=== PATIENT | male | born 1955 | race African-American/Black ===

== ENCOUNTER 2020-08-26 06:44 | Emergency (ER) | payer MEDICAID ==
[~2020-08-26] VITALS: Ht 182.9 cm; Wt 64.0 kg
[2020-08-26 08:55] VITALS: BP 171/98
== END 2020-08-26 08:55 | disposition home or self-care (01) ==
LOC: ER 06:44
DX: M54.2 Cervicalgia (principal); I10 Essential (primary) hypertension
CPT/HCPCS: 74176; 93005; 99285

== ENCOUNTER 2020-11-06 18:17 | Emergency (ER) | payer MEDICAID, OTHER ==
[~2020-11-06] VITALS: Ht 177.8 cm; Wt 75.0 kg
[2020-11-06 22:52] LABS: CHLORIDE 99 mEq/L (98-107)
[2020-11-06 22:57] LABS: ETHANOL BLOOD < 10 mg/dL
[2020-11-07 00:07] LABS: BASOPHILS % 0.3 % (0.0-2.0); HEMATOCRIT. 36.2 % (42.0-52.0); HEMOGLOBIN. 12.6 g/dL (14.0-18.0); LYMPHOCYTES % 13.9 % (20.0-50.0); MEAN CORPUSCULAR HEMOGLOBIN 31.1 pg (28.0-32.0); MEAN CORPUSCULAR VOLUME 89.1 fL (80.0-94.0); MEAN PLATELET VOLUME 6.4 fl (7.4-10.4); NEUTROPHILS % 69.8 % (40.0-76.0); PLATELET 247 x1000/uL (130-400); RED BLOOD CELL COUNT 4.07 mill/uL (4.7-6.1); RED CELL DISTRIBUTION WIDTH 13.9 % (11.6-14.6)
[2020-11-07 00:30] VITALS: BP 138/83
== END 2020-11-07 00:30 | disposition home or self-care (01) ==
LOC: ER 18:17 → CANBEDREQ 11-07 05:44
DX: R51.9 Headache, unspecified (principal); R42 Dizziness and giddiness; I10 Essential (primary) hypertension
CPT/HCPCS: 36415; 71045; 80048; 80076; 80320; 85025; 93971; 99285; G0480